=== PATIENT | male | born 1955 | race Caucasian/White ===

== ENCOUNTER 2018-03-28 10:55 | Emergency (ER) | payer BC ==
[~2018-03-28] VITALS: Ht 190.5 cm; Wt 108.9 kg
[2018-03-28 10:55] VITALS: BP_SYST 167
[2018-03-28] MEDS ORDERED: fentaNYL CITRATE/PF 100 MCG/2 ML AMP IM ONE (11:15)
[2018-03-28 13:09] VITALS: BP_SYST 144
== END 2018-03-28 13:09 | disposition home or self-care (01) ==
LOC: SED 10:55
DX: S39.012A Strain of muscle, fascia and tendon of lower back, initial encounter (principal); M25.519 Pain in unspecified shoulder; F32.9 Major depressive disorder, single episode, unspecified; I10 Essential (primary) hypertension; Z88.8 Allergy status to other drugs, medicaments and biological substances; Z90.89 Acquired absence of other organs; V89.2XXA Person injured in unspecified motor-vehicle accident, traffic, initial encounter; Y93.89 Activity, other specified; Y92.411 Interstate highway as the place of occurrence of the external cause; Y99.8 Other external cause status
CPT/HCPCS: 72131; 96372; 99284; J3010